=== PATIENT | male | born 1965 | race Caucasian/White ===

== ENCOUNTER 2018-07-31 10:06 | Emergency (ER) | payer MEDICARE, MEDICAID ==
[~2018-07-31] VITALS: Ht 172.7 cm; Wt 75.0 kg
[2018-07-31] MEDS ORDERED: ONDANSETRON 4MG ODT PO ONE (11:00)
[2018-07-31] MEDS ORDERED: IBUPROFEN 600MG TABLET PO ONE (11:30)
[2018-07-31 11:40] VITALS: BP 122/70
== END 2018-07-31 11:43 | disposition home or self-care (01) ==
LOC: ER 10:06
DX: S06.0X9A Concussion with loss of consciousness of unspecified duration, initial encounter (principal); F17.200 Nicotine dependence, unspecified, uncomplicated; Z96.659 Presence of unspecified artificial knee joint; Z98.890 Other specified postprocedural states; W22.8XXA Striking against or struck by other objects, initial encounter; Y93.89 Activity, other specified; Y92.89 Other specified places as the place of occurrence of the external cause; Y99.8 Other external cause status
CPT/HCPCS: 70450; 99284; Q0162